=== PATIENT | female | born 1980 | race Two or more races ===

== ENCOUNTER 2016-07-08 11:46 | Emergency (ER) | payer OTHER ==
[2016-07-08 12:12] VITALS: BP 112/87; PULSE 73; TEMP 98.4; BMI 31.1
[2016-07-08] MEDS ORDERED: SODIUM CHLORIDE 1,000 ML IV STA (12:56)
--- NOTE | 2016-07-08 12:56 | PDOC ---
History of Present Illness - General History Source: Patient Exam Limitations: No Limitations - History of Present Illness Initial Comments: CHIEF COMPLAINT: 35 y/o afebrile female, [id number] with LMP 04/28/16 c/o abd pain, nausea, vomiting for the past few days. HISTORY OF PRESENT ILLNESS: She denies f/c, AMARO, neck pain, CP, SOB, back pain, hematuria, dysuria, vaginal bleeding. SHe admits earlier in her her doctor diagnosed her and treated her for chlamydia. She has not had an ultrasound yet. Vital signs on arrival are within normal limits. REVIEW OF SYSTEMS: GENERAL/CONSTITUTIONAL: No fever/chills. No weakness. No weight change. HEAD, EYES, EARS, NOSE AND THROAT: No change in vision. No ear pain or discharge. No sore throat. CARDIOVASCULAR: No chest pain or shortness of breath. RESPIRATORY: No cough, wheezing, or hemoptysis. GASTROINTESTINAL: +abd pain, nausea, vomiting. No diarrhea, constipation. GENITOURINARY: No dysuria, frequency, or change in urination. MUSCULOSKELETAL: No joint or muscle swelling or pain. No neck or back pain. SKIN: No rash or easy bruising. NEUROLOGIC: No headache, vertigo, loss of consciousness, or loss of sensation. PHYSICAL EXAM: GENERAL: The patient is awake, alert, and fully oriented, in no acute distress. She is well appearing in NAD but intermittently rubbing the left side of her abdomen. HEAD: Normal with no signs of trauma. ENT: Pupils equal, round and reactive to light, extraocular movements intact, sclera anicteric, conjunctiva clear. Neck supple. LUNGS: Clear to auscultation bilaterally. Normal excursion. No respiratory distress or use of accessory muscles. CV: RRR, S1/S2, no MRG. Cap refill < 2 sec. ABDOMEN: Soft, non-distended, non-tender even to deep palpation. No rebound, guarding or rigidity. EXTREMITIES: Normal range of motion, no edema. NEUROLOGICAL: Normal speech, normal gait. CN II-XII grossly intact. PSYCH: Normal mood, normal affect. SKIN: Warm, dry, normal turgor, no rashes or lesions noted. <Edna Payne - Last Filed: 07/08/16 19:06> <Abhi Hooks - Last Filed: 07/08/16 19:52> - General Chief Complaint: Pain Stated Complaint: ABD PAIN, VOMITING Time Seen by Provider: 07/08/16 12:49 Past History - Past Medical History Asthma: Yes Diabetes: Yes Hypercholesterolemia: Yes Suicide Attempt (Hx): No - Surgical History Cholecystectomy: Yes - Reproductive History Is Patient Now?: Yes (#): 6 Para: 2 Spontaneous : 3 - Psycho/Social/Smoking Cessation Hx Anxiety: No Suicidal Ideation: No Smoking History: Never smoked Have you smoked in the past 12 months: No Information on smoking cessation initiated: No Hx Alcohol Use: No Drug/Substance Use Hx: No Substance Use Type: None <Edna Payne - Last Filed: 07/08/16 19:06> <Abhi Hooks - Last Filed: 07/08/16 19:52> - Past Medical History Allergies/Adverse Reactions: Allergies Allergy/AdvReac Type Severity Reaction Status Date / Time No Known Allergies Allergy Verified 07/08/16 12:12 Home Medications: Ambulatory Orders Cyclobenzaprine HCl [Flexeril -] 10 mg PO TID #21 tablet 04/05/16 Ibuprofen [Motrin -] 600 mg PO TID #21 tablet 04/05/16 *Physical Exam - Vital Signs Last Vital Signs Temp Pulse Resp BP Pulse Ox 98.4 F 73 18 112/87 100 07/08/16 12:08 07/08/16 12:08 07/08/16 12:08 07/08/16 12:08 07/08/16 12:08 <Edna Payne - Last Filed: 07/08/16 19:06> - Vital Signs Last Vital Signs Temp Pulse Resp BP Pulse Ox 98.4 F 73 18 112/87 100 07/08/16 12:08 07/08/16 12:08 07/08/16 12:08 07/08/16 12:08 07/08/16 12:08 <Abhi Hooks - Last Filed: 07/08/16 19:52> ED Treatment Course - LABORATORY CBC & Chemistry Diagram: 07/08/16 13:05 07/08/16 14:19 <Edna Payne - Last Filed: 07/08/16 19:06> - LABORATORY CBC & Chemistry Diagram: 07/08/16 13:05 07/08/16 14:19 - ADDITIONAL ORDERS Additional order review: Laboratory Results 07/08/16 07/08/16 07/08/16 14:19 14:19 13:25 Sodium 139 Potassium 3.4 L Chloride 107 Carbon Dioxide 23 Anion Gap 9 BUN 8 Creatinine 0.5 L Creat Clearance w eGFR > 60 Random Glucose 112 H D Calcium 7.6 L Magnesium 1.6 L Total Bilirubin 0.4 D AST 12 L D ALT 18 D Alkaline Phosphatase 70 D Total Protein 6.1 L Albumin 2.9 L Lipase 76 Beta HCG, Quant 91168.1 Urine Color Yellow Urine Appearance Slcloudy Urine pH 5.0 Ur Specific [place] 1.028 Urine Protein 1+ H Urine Glucose (UA) Negative Urine Ketones Trace H Urine Blood Negative Urine Nitrite Negative Urine Bilirubin Negative Urine Urobilinogen Negative Ur Leukocyte Esterase Trace H Urine RBC 2 Urine WBC 1 Ur Epithelial Cells Rare Urine Bacteria Rare Urine Mucus Moderate Blood Type O POSITIVE Antibody Screen Negative Spec Expiration Date 07/08/16 07/08/16 13:05 13:05 Sodium Cancelled Potassium Cancelled Chloride Cancelled Carbon Dioxide Cancelled Anion Gap Cancelled BUN Cancelled Creatinine Cancelled Creat Clearance w eGFR Cancelled Random Glucose Cancelled Calcium Cancelled Magnesium Total Bilirubin Cancelled AST Cancelled ALT Cancelled Alkaline Phosphatase Cancelled Total Protein Cancelled Albumin Cancelled Lipase Beta HCG, Quant Cancelled Urine Color Urine Appearance Urine pH Ur Specific [place] Urine Protein Urine Glucose (UA) Urine Ketones Urine Blood Urine Nitrite Urine Bilirubin Urine Urobilinogen Ur Leukocyte Esterase Urine RBC Urine WBC Ur Epithelial Cells Urine Bacteria Urine Mucus Blood Type Cancelled Antibody Screen Cancelled Spec Expiration Date Cancelled 07/08/16 13:05 RBC 4.42 MCV 75.5 L MCHC 32.6 RDW 16.1 H MPV 7.1 L Neutrophils % 71.0 D Lymphocytes % 22.8 D Monocytes % 4.4 Eosinophils % 1.0 Basophils % 0.8 - Medications Given in the ED: ED Medications Discontinued Medications Generic Name Dose Route Start Last Admin Trade Name Freq PRN Reason Stop Dose Admin Calcium Gluconate 1,000 mg 07/08/16 15:24 07/08/16 18:10 Calcium Gluconate 10% - IVPUSH 07/08/16 15:25 1,000 mg ONCE ONE Administration Sodium Chloride 1,000 mls @ 1,000 mls/hr 07/08/16 12:56 07/08/16 13:16 Normal Saline - IV 07/08/16 13:55 1,000 mls/hr ASDIR STA Administration Magnesium Sulfate 1 gm 07/08/16 15:24 07/08/16 16:05 Magnesium Sulfate IVPB 07/08/16 15:25 1 gm ONCE ONE Administration Potassium Chloride 20 meq 07/08/16 15:24 07/08/16 16:05 K-Dur - PO 07/08/16 15:25 20 meq ONCE ONE Administration <Abhi Hooks D - Last Filed: 07/08/16 19:52> Progress Note - Progress Note Progress Note: Patient ultrasound show live fetus with HR 156 bpm. Patient c/o pain Tylenol 650mg po ordered. Patient will be d/c'd to home with f/u to [employer]. <Abhi Hooks D - Last Filed: 07/08/16 19:52> Medical Decision Making - Medical Decision Making A/P: 35 y/o approximately 10 week female with abd pain, nausea, vomiting. Plan is as follows: 1. UA/culture 2. Labs 3. Iv fluids <Edna Payne - Last Filed: 07/08/16 19:06> *DC/Admit/Observation/Transfer <Edna Payne - Last Filed: 07/08/16 19:06> <Abhi Hooks - Last Filed: 07/08/16 19:52> Diagnosis at time of Disposition: Hypomagnesemia Abdominal pain Qualifiers: Abdominal location: generalized Qualified Code(s): R10.84 - Generalized abdominal pain Vomiting Qualifiers: Vomiting type: cyclical vomiting Vomiting Intractability: non-intractable Nausea presence: with nausea Qualified Code(s): G43.A0 - Cyclical vomiting, not intractable - Discharge Dispostion Disposition: HOME Condition at time of disposition: Improved - Patient Instructions Printed Discharge Instructions: DI for Abdominal Pain -- Early , DI for Vomiting -- Adult Additional Instructions: Discharge Instructions: -Follow up with your [facility] as soon as possible -Return to the ER with any worsening or concerning symptoms
[2016-07-08 13:16] LABS: BASOPHIL 0.8 % (0-2.0); MCH 24.6 pg (25.7-33.7); MCHC 32.6 g/dl (32.0-36.0); MEAN CELL VOLUME 75.5 fl (80-96); MEAN PLT VOLUME 7.1 fl (7.5-11.1); PLATELET COUNT 387 K/MM3 (134-434); RDW 16.1 % (11.6-15.6); WHITE BLOOD COUNT 9.2 K/mm3 (4.0-10.0)
[2016-07-08 13:35] LABS: URINE APPEARANCE SLCLOUDY; URINE BILIRUBIN NEGATIVE (NEGATIVE); URINE BLOOD NEGATIVE (NEGATIVE); URINE COLOR YELLOW; URINE GLUCOSE (UA) NEGATIVE (NEGATIVE); URINE KETONE TRACE (NEGATIVE); URINE NITRITE NEGATIVE (NEGATIVE); URINE UROBILINOGEN NEGATIVE E.U./dl (0.2-1.0)
[2016-07-08 14:25] LABS: URINE LEUK ESTERASE TRACE (NEGATIVE); URINE PROTEIN 1+ (NEGATIVE)
[2016-07-08 14:27] LABS: URINE BACTERIA RARE /hpf (NONE SEEN); URINE MUCUS MODERATE; URINE RBC 2 /hpf (0-3); URINE WBC 1 /hpf (3-5)
[2016-07-08 15:01] LABS: ALBUMIN 2.9 g/dl (3.4-5.0); ANION GAP 9 (8-16); BILIRUBIN,TOTAL 0.4 mg/dL (0.2-1.0); CALCIUM 7.6 mg/dL (8.5-10.1); CO2 23 mmol/L (21-32); CREATININE 0.5 mg/dL (0.55-1.02); GLUCOSE,RANDOM 112 mg/dL (74-106); MAGNESIUM 1.6 mg/dL (1.8-2.4); SGOT/AST 12 U/L (15-37); SGPT/ALT 18 U/L (12-78); TOT PROT 6.1 g/dl (6.4-8.2)
[2016-07-08 15:17] LABS: ALK PHOS 70 U/L (45-117)
[2016-07-08] MEDS ORDERED: MAGNESIUM SULF 50% (8.12 MEQ/2 ML-1 GM VIAL) IVPB ONE (15:24)
[2016-07-08] MEDS ORDERED: POTASSIUM CHLORIDE TABS 20 MEQ TABLET.ER (FP) PO ONE ×2 (15:24→15:40)
[2016-07-08] MEDS ORDERED: CALCIUM GLUCONATE 10% - 1,000 MG/10 ML VIAL IVPUSH ONE (15:24)
[2016-07-08] MEDS ORDERED: MAGNESIUM SULF 50% (8.12 MEQ/2 ML-1 GM VIAL) ONE (15:40)
[2016-07-08] MEDS ORDERED: CALCIUM GLUCONATE 10% - 1,000 MG/10 ML VIAL ONE (15:50)
[2016-07-08] MEDS ORDERED: ACETAMINOPHEN 325 MG TABLET (FP) PO ONE (19:49)
[2016-07-08] MEDS ORDERED: ACETAMINOPHEN 325 MG TABLET (FP) ONE (20:12)
== END 2016-07-08 20:39 | disposition home or self-care (01) ==
LOC: JER 11:46
PROC: 3E0337Z Introduction of Electrolytic and Water Balance Substance into Peripheral Vein, Percutaneous Approach (ICD-10-PCS; principal; 2016-07-08)
PROC: 3E033GC Introduction of Other Therapeutic Substance into Peripheral Vein, Percutaneous Approach (ICD-10-PCS; 2016-07-08)
DX: O26.891 Other specified pregnancy related conditions, first trimester (principal); E83.42 Hypomagnesemia; G43.A0 Cyclical vomiting, in migraine, not intractable; Z3A.10 10 weeks gestation of pregnancy
CPT/HCPCS: 36415; 76801-TC; 80053; 81003; 81015; 83690; 83735; 84702; 85025; 86850; 86900; 86901; 87086; 96361; 96374; 96375; 99282-25

== ENCOUNTER 2016-08-02 12:17 | Emergency (ER) | payer OTHER ==
[2016-08-02 12:29] VITALS: TEMP 97.9; BMI 30.9
[2016-08-02] MEDS ORDERED: FAMOTIDINE 20 MG/50 ML IVPB 20 MG in PREMIX 50 IVPB ONE (14:58)
[2016-08-02] MEDS ORDERED: ACETAMINOPHEN 325 MG TABLET (FP) PO ONE (14:58)
[2016-08-02 15:15] LABS: URINE APPEARANCE CLEAR; URINE BILIRUBIN NEGATIVE (NEGATIVE); URINE BLOOD NEGATIVE (NEGATIVE); URINE COLOR YELLOW; URINE GLUCOSE (UA) 1+ (NEGATIVE); URINE KETONE TRACE (NEGATIVE); URINE LEUK ESTERASE NEGATIVE (NEGATIVE); URINE NITRITE NEGATIVE (NEGATIVE); URINE PROTEIN NEGATIVE (NEGATIVE); URINE UROBILINOGEN NEGATIVE E.U./dl (0.2-1.0)
[2016-08-02 15:24] LABS: BASOPHIL 0.5 % (0-2.0); EOSINOPHIL 2.2 % (0-4.5); MCH 24.8 pg (25.7-33.7); MEAN CELL VOLUME 75.1 fl (80-96); MEAN PLT VOLUME 7.4 fl (7.5-11.1); NEUTROPHILS 62.5 % (42.8-82.8); PLATELET COUNT 352 K/MM3 (134-434); RDW 16.5 % (11.6-15.6); WHITE BLOOD COUNT 8.5 K/mm3 (4.0-10.0)
[2016-08-02 15:45] LABS: ALBUMIN 3.4 g/dl (3.4-5.0); ANION GAP 11 (8-16); BILIRUBIN,TOTAL 0.3 mg/dL (0.2-1.0); CALCIUM 8.7 mg/dL (8.5-10.1); CO2 25 mmol/L (21-32); CREATININE 0.5 mg/dL (0.55-1.02); GLUCOSE,RANDOM 81 mg/dL (74-106); SGOT/AST 13 U/L (15-37); SGPT/ALT 17 U/L (12-78); TOT PROT 7.2 g/dl (6.4-8.2)
[2016-08-02 16:01] LABS: ALK PHOS 77 U/L (45-117)
--- NOTE | 2016-08-02 16:15 | PDOC ---
History of Present Illness - History of Present Illness Initial Comments: 08/02/16 16:54 Patient is a 36 year old female (14 weeks) with significant medical hx of diabetes who is presenting to the ED with six days of right lower back pain. Patient complains of constant lower back pain that worsens when she sits up, stands, and while shes walking; she states that nothing relieves her pain. The patient also has a secondary complaint of intermittent epigastric pain with two episodes of vomiting over the past three days. That pain has resolved, although patient endorses feeling nauseous this morning. Patient also endorses some dysuria but denies hematuria. The patient was seen by her PCP in the office today who referred her to the ED for reevaluation. Patient denies any chest pain, shortness of breath, cough, melena, blood per rectum, vaginal bleeding, fever, chills, and diarrhea. /A3, LNMP: 04/28/16 <Tania Brown - Last Filed: 08/02/16 18:04> <Jeffrye Wick - Last Filed: 08/02/16 18:19> - General Chief Complaint: Pain, Acute Stated Complaint: ,C/O FLANK PAIN,URINARY PROBLEMS Time Seen by Provider: 08/02/16 13:51 Past History <Tania Brown - Last Filed: 08/02/16 18:04> - Past Medical History Asthma: Yes Diabetes: Yes Hypercholesterolemia: Yes Suicide Attempt (Hx): No - Surgical History Cholecystectomy: Yes - Reproductive History Is Patient Now?: Yes (#): 6 Para: 2 Cervical CA: No Dysfunctional Uterine Bleeding: No Ectopic : No Endometrial CA: No Polycystic Ovaries: No Spontaneous : 3 - Psycho/Social/Smoking Cessation Hx Anxiety: No Suicidal Ideation: No Smoking History: Never smoked Have you smoked in the past 12 months: No Information on smoking cessation initiated: No Hx Alcohol Use: No Drug/Substance Use Hx: No Substance Use Type: None <Jeffrey Wick - Last Filed: 08/02/16 18:19> - Past Medical History Allergies/Adverse Reactions: Allergies Allergy/AdvReac Type Severity Reaction Status Date / Time No Known Allergies Allergy Verified 08/02/16 12:27 Home Medications: Ambulatory Orders Metformin HCl [Glucophage -] 500 mg PO BID 08/02/16 Review of Systems - Review of Systems Comments:: 08/02/16 16:59 CONSTITUTIONAL: No reported: Fever, Chills, Diaphoresis, Generalized Weakness, Malaise, Loss of Appetite HEENT: No reported: Rhinorrhea, Nasal Congestion, Throat Pain, Throat Swelling, Difficulty Swallowing, Mouth Swelling, Ear Pain, Eye Pain, Visual Changes CARDIOVASCULAR: No reported: Chest Pain, Syncope, Palpitations, Irregular Heart Rate, Lightheadedness, Peripheral Edema RESPIRATORY: No reported: Cough, Shortness of Breath, SOB with Exertion, Orthopnea, Wheezing , Stridor, Hemoptysis GASTROINTESTINAL: Reported: Abdominal Pain, Vomiting No reported: Abdominal Distension, Nausea, Diarrhea, Constipation, Melena, Hematochezia GENITOURINARY: Reported: Dysuria No reported: Frequency, Urgency, Hesitancy, Flank Pain, Genital Pain MUSCULOSKELETAL: Reported: bilatearl Lower Back Pain No reported: Myalgia, Arthralgia, Joint Swelling, Neck Pain SKIN: No reported: Rash, Itching, Pallor HEMEATOLOGIC/IMMUNOLOGIC: No reported: Easy Bleeding, Easy Bruising, Lymphadenopathy, Frequent infections ENDOCRINE: No reported: Unexplained Weight Gain, Unexplained Weight Loss, Heat Intolerance , Cold Intolerance NEUROLOGIC: No reported: Headache, Focal Weakness, Paresthesias, Vertigo, Lightheadedness, Unsteady Gait, Seizure, Mental Status Changes, Incontinence PSYCHIATRIC: No reported: Anxiety, Depression <Stephanie,Tania - Last Filed: 08/02/16 18:04> *Physical Exam - Vital Signs Last Vital Signs Temp Pulse Resp BP Pulse Ox 97.9 F 85 18 137/73 99 08/02/16 12:25 08/02/16 12:25 08/02/16 12:25 08/02/16 12:25 08/02/16 12:25 - Physical Exam Comments: 08/02/16 17:00 GENERAL: The patient is awake, alert, and fully oriented, Nontoxic - in no acute distress. HEAD: Normocephalic, atraumatic. EYES: extraocular movements intact, sclera anicteric, conjunctiva clear. ENT: Normal voice, Moist mucous membranes. NECK: Normal range of motion, supple LUNGS: Breath sounds equal, clear to auscultation bilaterally. No wheezes, no rhonchi, no rales. HEART: Regular rate and rhythm, without murmur, rub or gallop. ABDOMEN: Soft,gravid abdomen, soft nontender, normoactive bowel sounds. No guarding, no rebound.No CVA tenderness EXTREMITIES: Normal range of motion, no edema. No clubbing or cyanosis. No cords, erythema, or tenderness. NEUROLOGICAL: No facial assymetry, Normal speech, PSYCH: Normal mood, normal affect. SKIN: Warm, Dry, normal turgor <Stephanie,Tania - Last Filed: 08/02/16 18:04> - Vital Signs Last Vital Signs Temp Pulse Resp BP Pulse Ox 97.9 F 85 18 137/73 99 08/02/16 12:25 08/02/16 12:25 08/02/16 12:25 08/02/16 12:25 08/02/16 12:25 <DelanoJeffrey nickerson - Last Filed: 08/02/16 18:19> ED Treatment Course - LABORATORY CBC & Chemistry Diagram: 08/02/16 15:00 08/02/16 15:00 - ADDITIONAL ORDERS Additional order review: Laboratory Results 08/02/16 08/02/16 15:00 14:26 Sodium 137 Potassium 3.8 Chloride 101 Carbon Dioxide 25 Anion Gap 11 BUN 9 Creatinine 0.5 L Creat Clearance w eGFR > 60 Random Glucose 81 D Calcium 8.7 Total Bilirubin 0.3 D AST 13 L ALT 17 Alkaline Phosphatase 77 Total Protein 7.2 Albumin 3.4 Lipase 92 Beta HCG, Quant 56787.1 Urine Color Yellow Urine Appearance Clear Urine pH 6.0 Ur Specific [place] 1.027 Urine Protein Negative Urine Glucose (UA) 1+ H Urine Ketones Trace H Urine Blood Negative Urine Nitrite Negative Urine Bilirubin Negative Urine Urobilinogen Negative Ur Leukocyte Esterase Negative 08/02/16 15:00 RBC 4.45 MCV 75.1 L MCHC 33.0 RDW 16.5 H MPV 7.4 L Neutrophils % 62.5 Lymphocytes % 30.3 D Monocytes % 4.5 Eosinophils % 2.2 D Basophils % 0.5 - RADIOLOGY Radiograph Interpretation: 08/02/16 18:04 Obstetrics US Impression: Single live intrauterine gestation of 14 weeks 4 days gestational age. Reported By: Adan Peralta MD - Medications Given in the ED: ED Medications Discontinued Medications Generic Name Dose Route Start Last Admin Trade Name Freq PRN Reason Stop Dose Admin Acetaminophen 650 mg 08/02/16 14:58 08/02/16 15:27 Tylenol - PO 08/02/16 14:59 650 mg ONCE ONE Administration Famotidine/Sodium Chloride 20 50 mls @ 100 mls/hr 08/02/16 14:58 08/02/16 15:27 mg/ Miscellaneous IVPB 08/02/16 15:27 100 mls/hr ONCE ONE Administration <Tania Brown - Last Filed: 08/02/16 18:04> - LABORATORY CBC & Chemistry Diagram: 08/02/16 15:00 08/02/16 15:00 - ADDITIONAL ORDERS Additional order review: Laboratory Results 08/02/16 08/02/16 15:00 14:26 Sodium 137 Potassium 3.8 Chloride 101 Carbon Dioxide 25 Anion Gap 11 BUN 9 Creatinine 0.5 L Creat Clearance w eGFR > 60 Random Glucose 81 D Calcium 8.7 Total Bilirubin 0.3 D AST 13 L ALT 17 Alkaline Phosphatase 77 Total Protein 7.2 Albumin 3.4 Lipase 92 Beta HCG, Quant 35674.1 Urine Color Yellow Urine Appearance Clear Urine pH 6.0 Ur Specific [place] 1.027 Urine Protein Negative Urine Glucose (UA) 1+ H Urine Ketones Trace H Urine Blood Negative Urine Nitrite Negative Urine Bilirubin Negative Urine Urobilinogen Negative Ur Leukocyte Esterase Negative 08/02/16 15:00 RBC 4.45 MCV 75.1 L MCHC 33.0 RDW 16.5 H MPV 7.4 L Neutrophils % 62.5 Lymphocytes % 30.3 D Monocytes % 4.5 Eosinophils % 2.2 D Basophils % 0.5 - RADIOLOGY Radiology Studies Ordered: Category Date Time Status <14WKS US [US] Stat Ultrasound 08/02/16 16:12 Ordered - Medications Given in the ED: ED Medications Discontinued Medications Generic Name Dose Route Start Last Admin Trade Name Freq PRN Reason Stop Dose Admin Acetaminophen 650 mg 08/02/16 14:58 08/02/16 15:27 Tylenol - PO 08/02/16 14:59 650 mg ONCE ONE Administration Famotidine/Sodium Chloride 20 50 mls @ 100 mls/hr 08/02/16 14:58 08/02/16 15:27 mg/ Miscellaneous IVPB 08/02/16 15:27 100 mls/hr ONCE ONE Administration <Jeffrey Wick - Last Filed: 08/02/16 18:19> Medical Decision Making - Medical Decision Making 08/02/16 16:13 36y F A3 at [id number] weeks gesatation presents with b/l lower back pain that is worse with movement, standing. pt also endorsed mild epigastric pain associated nausea/vomiting which has largely resolved. pt endorses dysuria. The pt denies any falls, fever/chills, diarrhea, weakness/numbness/tingling. on exam the pt is in no acute distress with no abdominal tenderness. Pt has mild b/l posterior lumbar back tendernses. suspect msk in nature will ck ua to r/o uti US to confirm viability 08/02/16 18:11 The patient is feeling improved. Abdomen was reassessed it is soft and nontender. The patient's back pain is improved. The patient's blood work was reviewed it is unremarkable, UA inconsistent with UTI UltraSound is negative reveals a viable 14 week with appropriate heart rate. I suspect the patient's back pain is muscular in nature will recommend supportive management at home and treatment with Tylenol as needed as well as a heating pad. The patient also states that her epigastric pain is worse when alot of spicey foods. - Suspect that there may be a component of acid reflux I will have the patient decrease intake of these foods. return precautions were discussed I discussed the physical exam findings, ancillary test results and final diagnoses with the patient. I answered all of the patient's questions. The patient was satisfied with the care received and felt comfortable with the discharge plan and treatment plan. The patient will call their primary care physician within 24 hours to arrange follow-up and will return to the Emergency Department with any new, persistent or worsening symptoms. A portion of this note was documented by scribe services under my direction. I have reviewed the details of the note, within reason, and agree with the documentation with the following case summary and management plan written by me <Jeffrey Wick - Last Filed: 08/02/16 18:19> *DC/Admit/Observation/Transfer - Attestations Scribe Attestion: 08/02/16 17:01 Documentation prepared by Tania Brown, acting as certified medical technician assistant for Jeffrey Wick MD. <Tania Brown - Last Filed: 08/02/16 18:04> - Discharge Dispostion Admit: No <Jeffrey Wick - Last Filed: 08/02/16 18:19> Diagnosis at time of Disposition: Epigastric discomfort, Back pain affecting in first trimester - Discharge Dispostion Disposition: HOME Condition at time of disposition: Improved - Referrals Referrals: Norma Pryor MD [Primary Care Provider] - - Patient Instructions Printed Discharge Instructions: DI for Low Back Pain Additional Instructions: Vuelva al departamento de emergencia inmediatamente con CUALQUIER nuevo, persistente o empeorando los sntomas incluyendo entumecimiento, hormigueo, debilidad, fiebre, sangra vaginal, vmito, o cualquier otra preocupacin. Brittany tylenol para el dolor segn sea necesario. Aplicar calor a los msculos doloridos. Usted DEBE llamar y seguir con [facility] doctor maana para la evaluacin adicional de bella sntomas. Los resultados fueron discutidos con usted. Por favor, asegrese de que [facility] mdico revise los resultados de [facility] evaluacin de emergencia. Return to the emergency department immediately with ANY new, persistent or worsening symptoms including numbness, tingling, weakness, fevers, vaginal bleeding, vomiting, or any other concerns. Take tylenol for pain as needed. Apply heat to your sore muscles. You MUST call and follow up with your doctor tomorrow for further evaluation of your symptoms. Results were discussed with you. Please make sure your doctor reviews the results of your emergency evaluation. Print Language: SETSWANA
[2016-08-02 18:23] VITALS: BP 117/82; PULSE 74
== END 2016-08-02 18:23 | disposition home or self-care (01) ==
LOC: JER 12:17
PROC: 3E033GC Introduction of Other Therapeutic Substance into Peripheral Vein, Percutaneous Approach (ICD-10-PCS; principal; 2016-08-02)
DX: O26.892 Other specified pregnancy related conditions, second trimester (principal); R10.13 Epigastric pain; M54.5 Low back pain; Z3A.14 14 weeks gestation of pregnancy; E11.9 Type 2 diabetes mellitus without complications; J45.909 Unspecified asthma, uncomplicated; E78.00 Pure hypercholesterolemia, unspecified; Z79.01 Long term (current) use of anticoagulants
CPT/HCPCS: 36415; 76815-TC; 80053; 81003; 83690; 84702; 85025; 87086; 96365; 99283-25

== ENCOUNTER 2016-12-20 00:58 | Emergency (ER) | payer OTHER ==
[2016-12-20 01:05] VITALS: BMI 31.9
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
[2016-12-20] MEDS ORDERED: ACETAMINOPHEN 325 MG TABLET (FP) PO ONE (01:32)
[2016-12-20] MEDS ORDERED: ACETAMINOPHEN 325 MG TABLET (FP) ONE (01:33)
[2016-12-20] MEDS ORDERED: LACTATED RINGERS SOLUTION 1,000 ML IV ONE ×2 (03:59→06:40)
[2016-12-20] MEDS ORDERED: TERBUTALINE SULFATE 1 MG/1 ML VIAL SQ ONE ×2 (04:45→04:56)
[2016-12-20 07:28] VITALS: BP 115/80; PULSE 89; TEMP 98
== END 2016-12-20 07:51 | disposition home or self-care (01) ==
LOC: JER 00:58 → JERBED 01:28 → UNDOADMIN 01:28 → JER 07:51
DX: S39.81XA Other specified injuries of abdomen, initial encounter (principal); Z3A.39 39 weeks gestation of pregnancy; Y04.2XXA Assault by strike against or bumped into by another person, initial encounter; Y93.89 Activity, other specified; Y92.488 Other paved roadways as the place of occurrence of the external cause
CPT/HCPCS: 76801-TC; 99283-25

== ENCOUNTER 2016-12-20 13:34 | Inpatient (IN) | payer OTHER ==
[2016-12-20 13:44] VITALS: BMI 33.8
[2016-12-20] MEDS ORDERED: LACTATED RINGERS SOLUTION 500 ML IV ONE ×2 (15:15→16:15)
[2016-12-20] MEDS ORDERED: TERBUTALINE SULFATE 1 MG/1 ML VIAL SQ ONE (15:30)
[2016-12-20] MEDS ORDERED: diphenhydrAMINE HCL 25 MG CAPSULE (FP) PO ONE ×2 (17:42→18:23)
[2016-12-20] MEDS ORDERED: ACETAMINOPHEN 325 MG TABLET (FP) PO ONE (17:42)
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
[2016-12-20 18:08] LABS: BASOPHIL 0.4 % (0-2.0); EOSINOPHIL 0.9 % (0-4.5); MCH 20.7 pg (25.7-33.7); MCHC 30.9 g/dl (32.0-36.0); NEUTROPHILS 68.8 % (42.8-82.8); PLATELET COUNT 308 K/MM3 (134-434); RDW 18.1 % (11.6-15.6); WHITE BLOOD COUNT 5.7 K/mm3 (4.0-10.0)
[2016-12-20] MEDS ORDERED: ACETAMINOPHEN 325 MG TABLET (FP) ONE (18:23)
[2016-12-20 18:32] LABS: ALBUMIN 2.4 g/dl (3.4-5.0); ANION GAP 11 (8-16); BILIRUBIN,TOTAL 0.4 mg/dL (0.2-1.0); CALCIUM 8.1 mg/dL (8.5-10.1); CO2 21 mmol/L (21-32); CREATININE 0.4 mg/dL (0.55-1.02); GLUCOSE,RANDOM 105 mg/dL (74-106); MAGNESIUM 1.6 mg/dL (1.8-2.4); SGOT/AST 18 U/L (15-37); SGPT/ALT 15 U/L (12-78); TOT PROT 5.9 g/dl (6.4-8.2)
[2016-12-20 18:33] LABS: ALK PHOS 146 U/L (45-117)
[2016-12-20 20:22] LABS: URINE APPEARANCE CLEAR; URINE BILIRUBIN NEGATIVE (NEGATIVE); URINE BLOOD NEGATIVE (NEGATIVE); URINE COLOR LTYELLOW; URINE GLUCOSE (UA) 1+ (NEGATIVE); URINE KETONE 2+ (NEGATIVE); URINE LEUK ESTERASE NEGATIVE (NEGATIVE); URINE NITRITE NEGATIVE (NEGATIVE); URINE PROTEIN NEGATIVE (NEGATIVE); URINE UROBILINOGEN NEGATIVE E.U./dl (0.2-1.0)
[2016-12-20 21:14] LABS: PLATELET ESTIMATE ADEQUATE (NORMAL); POLYCHROMASIA FEW
[2016-12-20 21:15] LABS: HYPOCHROMIA 2+; MICROCYTOSIS 2+
[2016-12-20] MEDS ORDERED: ACETAMINOPHEN 325 MG TABLET (FP) PO PRN (23:06)
[2016-12-20] MEDS ORDERED: LACTATED RINGERS SOLUTION 1,000 ML IV SCH (23:15)
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
[2016-12-21 11:53] LABS: BASOPHIL 0.8 % (0-2.0); EOSINOPHIL 2.1 % (0-4.5); MCH 22.5 pg (25.7-33.7); MEAN CELL VOLUME 70.4 fl (80-96); MEAN PLT VOLUME 7.1 fl (7.5-11.1); PLATELET COUNT 276 K/MM3 (134-434); RDW 19.8 % (11.6-15.6); WHITE BLOOD COUNT 5.7 K/mm3 (4.0-10.0)
[2016-12-21 14:11] VITALS: BP 116/65; PULSE 82; TEMP 98.5
== END 2016-12-21 15:30 | disposition home or self-care (01) | DRG 566 ==
LOC: JER 13:34 → JERBED 21:20 → J3W 22:59
PROVIDERS: ADMIT Obstetrics & Gynecology; ATTEND Obstetrics & Gynecology
PROC: 30233N1 Transfusion of Nonautologous Red Blood Cells into Peripheral Vein, Percutaneous Approach (ICD-10-PCS; principal; 2016-12-20)
DX: O99.013 Anemia complicating pregnancy, third trimester (principal); D64.9 Anemia, unspecified; O99.343 Other mental disorders complicating pregnancy, third trimester; F41.9 Anxiety disorder, unspecified; Y08.89XD Assault by other specified means, subsequent encounter; E78.00 Pure hypercholesterolemia, unspecified; J45.909 Unspecified asthma, uncomplicated; Z3A.36 36 weeks gestation of pregnancy
CPT/HCPCS: 36415; 36430; 36511; 80053; 81003; 83735; 85025; 86850; 86900; 86901; 86922; 87086; 99282-25; P9038; P9058

== ENCOUNTER 2017-01-25 03:14 | Inpatient (IN) | payer OTHER ==
[2017-01-25] MEDS ORDERED: PROMETHAZINE HCL 25 MG/1 ML VIAL IVPUSH ONE (04:40)
[2017-01-25] MEDS ORDERED: BUTORPHANOL TARTRATE 1 MG/ML VIAL IVPB ONE (04:40)
[2017-01-25 05:08] LABS: BASOPHIL 0.9 % (0-2.0); EOSINOPHIL 1.1 % (0-4.5); MCH 21.9 pg (25.7-33.7); MCHC 31.1 g/dl (32.0-36.0); MEAN CELL VOLUME 70.4 fl (80-96); MEAN PLT VOLUME 7.8 fl (7.5-11.1); NEUTROPHILS 66.8 % (42.8-82.8); PLATELET COUNT 268 K/MM3 (134-434); RDW 21.8 % (11.6-15.6); WHITE BLOOD COUNT 6.2 K/mm3 (4.0-10.0)
[2017-01-25 05:31] LABS: INR 0.91 (0.82-1.09)
[2017-01-25 05:37] LABS: ANION GAP 11 (8-16); CALCIUM 8.3 mg/dL (8.5-10.1); CO2 21 mmol/L (21-32); CREATININE 0.5 mg/dL (0.55-1.02); GLUCOSE,RANDOM 107 mg/dL (74-106)
[2017-01-25] MEDS ORDERED: ELECTROLYTE-148 SOLN 1,000 ML IV SCH ×2 (05:45→06:45)
[2017-01-25 06:09] LABS: ANISOCYTOSIS 2+; HYPOCHROMIA 2+; PLATELET ESTIMATE ADEQUATE (NORMAL); POLYCHROMASIA FEW
[2017-01-25 06:44] VITALS: BMI 36.9
--- NOTE | 2017-01-25 06:50 | HP ---
Past Medical History - Admission Chief Complaint: Labor pain History of Present Illness: 36 yo @ 38.5 weeks gestation, EDC 02/03/17, admitted for Labor pain. History Source: Patient Limitations to Obtaining History: No Limitations - Past Medical History ...: 6 ...Para: 2 ...Term: 2 ...: 0 ...Spon : 3 ...Induced : 0 ...Multiple Gestation: 0 ...LMP: 04/21/16 ... Weeks Gestation by Dates: 39.6 ...EDC by Dates: 01/26/17 ...EDC by [facility]: 02/03/17 - Past Surgical History Past Surgical History: Yes: None Hx Myomectomy: No Hx Transabdominal Cerclage: No - Smoking History Smoking history: Never smoked Have you smoked in the past 12 months: No - Alcohol/Substance Use Hx Alcohol Use: No History of Substance Use: reports: None - Social History Usual Living Arrangement: Yes: Other (With children) History of Recent Travel: No Home Medications - Allergies Allergies/Adverse Reactions: Allergies Allergy/AdvReac Type Severity Reaction Status Date / Time No Known Allergies Allergy Verified 12/20/16 13:45 - Home Medications Home Medications: Ambulatory Orders Metformin HCl [Glucophage -] 500 mg PO BID 08/02/16 Vit #108/Iron/FA [ One Tablet] 1 tab PO DAILY 12/03/16 Family Disease History - Family Disease History Family History: Unremarkable Review of Systems - Review of Systems Constitutional: reports: No Symptoms Eyes: reports: No Symptoms HENT: reports: No Symptoms Neck: reports: No Symptoms Cardiovascular: reports: No Symptoms Respiratory: reports: No Symptoms Gastrointestinal: reports: No Symptoms Genitourinary: reports: Pain Neurological: reports: No Symptoms Endocrine: reports: No Symptoms Hematology/Lymphatic: reports: No Symptoms Psychiatric: reports: No Symptoms Pain Intensity: 7 Physical Exam - Maternity Vital Signs: Vital Signs Temperature 98.2 F 01/25/17 06:00 Pulse Rate 73 01/25/17 06:00 Respiratory Rate 20 01/25/17 06:00 Blood Pressure 134/81 01/25/17 06:00 O2 Sat by Pulse Oximetry (%) Constitutional: Yes: Well Nourished Eyes: Yes: Conjunctiva Clear HENT: Yes: Atraumatic Neck: Yes: Supple, Trachea Midline Cardiovascular: Yes: Regular Rate and Rhythm Lungs: Clear to auscultation - Abdominal Exam/OB Number of Fetuses: Single Presentation: Vertex Contractions: Yes - Vaginal Exam/OB Vaginal Bleediing: No Dilatation (cm): 4 Station: -2 - Physical Exam ...Motor Strength: WNL Psychiatric: Yes: Alert, Oriented - Labs Lab Results: CBC, BMP 01/25/17 04:45 01/25/17 04:45 Problem List - Problems (1) Pain during labor Code(s): O99.89 - OTH DISEASES AND CONDITIONS COMPL PREG/CHLDBRTH R52 - PAIN, UNSPECIFIED Assessment/Plan IUP @ term Active Labor Analgesia as needed Anticipate
[2017-01-25] MEDS ORDERED: BISACODYL 10 MG SUPP.RECT RC PRN (08:26)
[2017-01-25] MEDS ORDERED: BENZOCAINE 28 GM HEMORRHOIDAL OINTMENT TP PRN (08:26)
[2017-01-25] MEDS ORDERED: WITCH HAZEL 50% (TUCKS) 40 PAD/JAR PAD TP PRN (08:26)
[2017-01-25] MEDS ORDERED: METHYLERGONOVINE MALEATE 0.2 MG/1 ML AMP IM PRN (08:26)
[2017-01-25] MEDS ORDERED: BENZOCAINE 20% 57 GM BOTTLE TP PRN (08:26)
--- NOTE | 2017-01-25 08:29 | PN ---
Delivery - Delivery Vaginal Delivery: Spontaneous Type of Anesthesia: Local Episiotomy/Laceration: None EBL (cc): 300 Delivery, Single - Feeding Plan Initial Plan: Elected not to breastfeed exclusively throughout hospitalization Remarks - Remarks Remarks: Normal spontaneous vaginal delivery of a live girl over intact perineum. Nose / Oropharynx suctioned @ perineum. Nuchal cord clamped and cut. Placenta expelled spontaneously intact.
[2017-01-25] MEDS ORDERED: D5W-LR W/ 20 UNITS OXYTOCIN 1,000 ML IV SCH (08:30)
--- NOTE | 2017-01-25 08:32 | DS ---
Physical Exam-NURSE PRACTITIONER ADULT Vital Signs: Vital Signs Temperature 98.2 F 01/25/17 06:00 Pulse Rate 74 01/25/17 07:00 Respiratory Rate 20 01/25/17 07:00 Blood Pressure 132/74 01/25/17 07:00 O2 Sat by Pulse Oximetry (%) Constitutional: Yes: Well Nourished Eyes: Yes: Conjunctiva Clear Neck: Yes: Supple Cardiovascular: Yes: Regular Rate and Rhythm Respiratory: Yes: Regular Gastrointestinal: Yes: Normal Bowel Sounds External Genitalia: Yes: Normal Vaginal Exam: Yes: Normal Uterus: Yes: Firm ....Post : Yes: Uterus firm, Moderate lochia serosa Breast(s): Yes: WNL Musculoskeletal: Yes: WNL Neurological: Yes: Alert, Oriented ...Motor Strength: WNL Psychiatric: Yes: Alert, Oriented Labs: CBC, BMP 01/25/17 04:45 01/25/17 04:45 Delivery - Delivery Vaginal Delivery: Spontaneous Type of Anesthesia: Local Episiotomy/Laceration: None EBL (cc): 300 Delivery, Single - Feeding Plan Initial Plan: Elected not to breastfeed exclusively throughout hospitalization Discharge Summary Reason For Visit: LABOR Current Active Problems Pain during labor (Acute) Status post normal vaginal delivery (Acute) Procedures: Principal: Normal spontaneous vaginal delivery Hospital Course: Routine care Condition: Good - Instructions Diet, Activity, Other Instructions: Regular diet No douching, no sexual intercourse x 6 weeks F/U in clinic in 6 weeks Disposition: HOME - Home Medications Comprehensive Discharge Medication List: Ambulatory Orders Metformin HCl [Glucophage -] 500 mg PO BID 08/02/16
[2017-01-25] MEDS: ACETAMINOPHEN 325 MG TABLET (FP) PO PRN ×2 (08:40→15:14)
[2017-01-25] MEDS: IBUPROFEN 600 MG TABLET (FP) PO PRN ×2 (08:40→15:15)
[2017-01-25] MEDS ORDERED: SODIUM CHLORIDE 1,000 ML with OXYTOCIN 20 UNIT IV ONE (10:00)
[2017-01-25] MEDS ORDERED: INSULIN SLIDING SCALE (NOVOLOG) 1 VIAL SQ SCH (11:15)
[2017-01-25] MEDS: INSULIN SLIDING SCALE (NOVOLOG) 1 VIAL SQ SCH ×2 (11:58→17:17)
[2017-01-25] MEDS: PRENATAL VITAMINS W/ FOLIC ACID TABLET (FP) PO SCH (12:09)
[2017-01-25] MEDS: FERROUS SO4 325 MG TABLET (FP) PO SCH ×2 (12:09→19:00)
[2017-01-26] MEDS: SENNOSIDES/DOCUSATE COMBO (SENNA PLUS) TABLET (UD) PO PRN ×2 (00:21→21:29)
[2017-01-26] MEDS: IBUPROFEN 600 MG TABLET (FP) PO PRN ×3 (00:21→21:28)
[2017-01-26] MEDS: ACETAMINOPHEN 325 MG TABLET (FP) PO PRN ×3 (00:22→21:28)
[2017-01-26] MEDS: INSULIN SLIDING SCALE (NOVOLOG) 1 VIAL SQ SCH ×3 (07:31→16:37)
[2017-01-26 08:40] LABS: BASOPHIL 0.6 % (0-2.0); EOSINOPHIL 1.1 % (0-4.5); MCH 22.4 pg (25.7-33.7); MCHC 31.3 g/dl (32.0-36.0); MEAN CELL VOLUME 71.6 fl (80-96); MEAN PLT VOLUME 7.7 fl (7.5-11.1); NEUTROPHILS 69.6 % (42.8-82.8); PLATELET COUNT 242 K/MM3 (134-434); RDW 22.3 % (11.6-15.6); WHITE BLOOD COUNT 9.1 K/mm3 (4.0-10.0)
--- NOTE | 2017-01-26 08:47 | PN ---
Post Progress Note - Subjective Subjective: 36 yo Para 3, status post vaginal delivery, seen and evaluated. Doing well, no complaints. Type of Delivery: Vital Signs: Vital Signs Temperature 97.0 F L 01/26/17 05:30 Pulse Rate 62 01/26/17 05:30 Respiratory Rate 20 01/26/17 05:30 Blood Pressure 118/76 01/26/17 05:30 O2 Sat by Pulse Oximetry (%) Breast Exam: Yes: Soft Uterus: Yes: Fundus Firm Abdomen/GI: Yes: Abdomen soft, Tolerating PO Lochia: Yes: Rubra Lochia, amount: Moderate Extremities: Yes: Calves non-tender Activity: Ambulating - Labs Labs: CBC WBC 9.1 K/mm3 (4.0-10.0) D 01/26/17 07:45 RBC 3.46 M/mm3 (3.60-5.2) L 01/26/17 07:45 Hgb 7.8 GM/dL (10.7-15.3) L D 01/26/17 07:45 Hct 24.8 % (32.4-45.2) L 01/26/17 07:45 MCV 71.6 fl (80-96) L 01/26/17 07:45 MCH 22.4 pg (25.7-33.7) L 01/26/17 07:45 MCHC 31.3 g/dl (32.0-36.0) L 01/26/17 07:45 RDW 22.3 % (11.6-15.6) H 01/26/17 07:45 Plt Count 242 K/MM3 (134-434) 01/26/17 07:45 MPV 7.7 fl (7.5-11.1) 01/26/17 07:45 Neutrophils % 69.6 % (42.8-82.8) 01/26/17 07:45 Lymphocytes % 24.4 % (8-40) 01/26/17 07:45 Monocytes % 4.3 % (3.8-10.2) 01/26/17 07:45 Eosinophils % 1.1 % (0-4.5) 01/26/17 07:45 Basophils % 0.6 % (0-2.0) 01/26/17 07:45 Platelet Estimate Adequate (NORMAL) 01/25/17 04:45 Polychromasia Few 01/25/17 04:45 Hypochromic-Microcytic 2+ 01/25/17 04:45 Anisocytosis 2+ 01/25/17 04:45 Macrocytosis 1+ 01/25/17 04:45 Problem List - Problems (1) Pain during labor Code(s): O99.89 - OTH DISEASES AND CONDITIONS COMPL PREG/CHLDBRTH R52 - PAIN, UNSPECIFIED Assessment/Plan Status post normal vaginal delivery Stable Continue routine care
[2017-01-26] MEDS: PRENATAL VITAMINS W/ FOLIC ACID TABLET (FP) PO SCH (09:26)
[2017-01-26] MEDS: FERROUS SO4 325 MG TABLET (FP) PO SCH ×3 (09:26→16:58)
[2017-01-26 10:20] LABS: ANISOCYTOSIS 3+; HYPOCHROMIA 1+; MICROCYTOSIS 1+; PLATELET ESTIMATE ADEQUATE (NORMAL); POLYCHROMASIA 1+
[2017-01-27] MEDS: IBUPROFEN 600 MG TABLET (FP) PO PRN (04:11)
[2017-01-27] MEDS: ACETAMINOPHEN 325 MG TABLET (FP) PO PRN (04:12)
[2017-01-27] MEDS: INSULIN SLIDING SCALE (NOVOLOG) 1 VIAL SQ SCH ×2 (07:35→11:39)
[2017-01-27] MEDS: PRENATAL VITAMINS W/ FOLIC ACID TABLET (FP) PO SCH (09:08)
[2017-01-27] MEDS: FERROUS SO4 325 MG TABLET (FP) PO SCH ×2 (09:08→11:38)
[2017-01-27 09:13] VITALS: BP 133/68; PULSE 65; TEMP 97.5
== END 2017-01-27 12:51 | disposition home or self-care (01) | DRG 560 ==
LOC: JDEL 03:14 → JLDR 03:18 → JDEL 03:18 → J3W 10:30
PROVIDERS: ADMIT Obstetrics & Gynecology; ATTEND Obstetrics & Gynecology
PROC: 10E0XZZ Delivery of Products of Conception, External Approach (ICD-10-PCS; principal; 2017-01-25)
DX: O80 Encounter for full-term uncomplicated delivery (principal); Z3A.38 38 weeks gestation of pregnancy; Z37.0 Single live birth
CPT/HCPCS: 36415; 59409; 80048; 85025; 85610; 85730; 86593; 86850; 86900; 86901

== ENCOUNTER 2018-04-28 20:42 | Emergency (ER) | payer OTHER ==
[2018-04-28 21:05] VITALS: BP 130/76; PULSE 72; TEMP 97.7; BMI 25.4
[2018-04-28] MEDS ORDERED: IBUPROFEN 600 MG TABLET (FP) PO ONE ×2 (21:08→22:07)
[2018-04-28] MEDS ORDERED: ACETAMINOPHEN 325 MG TABLET (FP) PO ONE (21:08)
--- NOTE | 2018-04-28 21:31 | PDOC ---
History of Present Illness - General Chief Complaint: Injury Stated Complaint: FALL History Source: Patient, Family - History of Present Illness Initial Comments: 04/28/18 21:26 37yoF hx of DM presents after trip and fall. Pt was wearing her 1y11mo daughter in a front baby carrier, baby facing towards mom. Baby is also a patient. Tripped on sidewalk, fall from standing height forward onto hands and knees, tried to avoid hitting baby, however baby did have head strike. Mom negative head strike, no LOC. + abrasion to R knee, c/o diffuse body aches. Past History - Past Medical History Allergies/Adverse Reactions: Allergies Allergy/AdvReac Type Severity Reaction Status Date / Time No Known Allergies Allergy Verified 04/28/18 21:05 Home Medications: Ambulatory Orders metFORMIN HCL [Glucophage -] 500 mg PO BID 08/02/16 Ibuprofen [Motrin -] 600 mg PO QID #120 tablet 01/27/17 Vit No.124/Iron/Folic [ Vitamin Tablet] 1 each PO DAILY #60 tablet 01/27/17 Asthma: No Cancer: No Cardiac Disorders: No Diabetes: Yes (gestational diabetes) HTN: Yes Hypercholesterolemia: Yes Seizures: No Thyroid Disease: No - Surgical History Cholecystectomy: Yes - Reproductive History (#): 6 Para: 2 Cervical CA: No Dysfunctional Uterine Bleeding: No Ectopic : No Endometrial CA: No Polycystic Ovaries: No Spontaneous : 3 - Immunization History Immunization Up to Date: Yes - Suicide/Smoking/Psychosocial Hx Smoking History: Never smoked Have you smoked in the past 12 months: No Information on smoking cessation initiated: No Hx Alcohol Use: No Drug/Substance Use Hx: No Substance Use Type: None Hx Substance Use Treatment: No Review of Systems - Review of Systems All Other Systems: Reviewed and Negative *Physical Exam - Vital Signs Last Vital Signs Temp Pulse Resp BP Pulse Ox 97.7 F 72 19 130/76 98 04/28/18 20:45 04/28/18 20:45 04/28/18 20:45 04/28/18 20:45 04/28/18 20:45 - Physical Exam Comments: 04/28/18 21:28 NAD, well appearing EOMI, RASHEL NCAT RRR CTABL soft NTND pelvis stable C/T/L/S spine neg midline tenderness/stepoffs b/l wrists negative for swelling/deformity/tendenress, negative snuff box b/l [place] ankle rule negative [place] knee rule negative pt ambulating in ER > 4 steps w/ steady gait. A&O x 3. 04/28/18 21:31 Medical Decision Making - Medical Decision Making 04/28/18 21:29 37yoF s/p trip and fall with minimal e/o injury, clears imaging rules. - ice packs - tylenol, ibuprofen - DC. *DC/Admit/Observation/Transfer - Discharge Dispostion Disposition: HOME Condition at time of disposition: Good Decision to Admit order: No - Referrals - Patient Instructions Additional Instructions: take tylenol and ibuprofen for aches and pains ICE to injuries You will have more aches and pains tomorrow. - Post Discharge Activity Forms/Work/School Notes: Back to Work
[2018-04-28] MEDS ORDERED: ACETAMINOPHEN 325 MG TABLET (FP) ONE (22:07)
== END 2018-04-29 00:39 | disposition home or self-care (01) ==
LOC: JER 20:42
DX: S80.211A Abrasion, right knee, initial encounter (principal); W01.0XXA Fall on same level from slipping, tripping and stumbling without subsequent striking against object, initial encounter; Y93.89 Activity, other specified; Y92.480 Sidewalk as the place of occurrence of the external cause; Y99.8 Other external cause status
CPT/HCPCS: 99281-25

== ENCOUNTER 2021-01-09 15:42 | Emergency (ER) | payer OTHER ==
[2021-01-09 15:51] VITALS: BP 113/74; PULSE 94; TEMP 97; BMI 34.3
== END 2021-01-09 17:10 | disposition home or self-care (01) ==
LOC: JERFT 15:42
DX: G56.01 Carpal tunnel syndrome, right upper limb (principal)
CPT/HCPCS: 99282-25